=== PATIENT | male | born 1970 | race Hispanic/Latino ===

== ENCOUNTER 2022-04-25 10:04 | Inpatient (IN) | payer BC, SELFPAY ==
--- NOTE | 2022-04-25 10:41 | RAD REPORT ---
EXAM DESCRIPTION: CT - Ct Stroke Brain Wo Cont - 04/25/2022 10:28 am CLINICAL HISTORY: diplopia COMPARISON: No comparisons TECHNIQUE: Axial 5 millimeter thick images of the head were obtained without IV contrast. All CT scans are performed using dose optimization technique as appropriate and may include automated exposure control or mA/KV adjustment according to patient size. FINDINGS: No intracranial hemorrhage, mass, or cerebral edema. No acute infarction identifiable. No extra-axial fluid collections. [place] matter-white matter differentiation is preserved. Visualized portions of the mastoid air cells, paranasal sinuses, and orbits are unremarkable. Findings telephoned to Dr. Miles 10:36 a.m. IMPRESSION: No CT evidence of acute intracranial process.
[2022-04-25 10:51] LABS: Absolute Lymphocytes (CBC) 3.6 K/uL (0.7-4.9); Hematocrit 43.3 % (39.6-49.0); Lymphocytes % 45.5 % (15.3-44.8); MCV 90.3 fL (80-100); MPV 8.2 fL (7.6-11.3)
[2022-04-25] MEDS ORDERED: TENECTEPLASE 50 MG/10 ML VIAL IV ONE (10:52)
[2022-04-25 10:55] LABS: Protime INR 1.05
[2022-04-25 11:07] LABS: BUN Blood Urea Nitrogen 16 mg/dL (7-18); Bicarbonate 30 mmol/L (21-32); Glomerular Filtration Rate 107 ml/min (=/>90); Glucose Level 187 mg/dL (74-106); Potassium 3.3 mmol/L (3.5-5.1); Sodium Level 138 mmol/L (136-145)
[2022-04-25 11:09] LABS: Troponin High Sensitivity < 3.0 pg/mL (<58.9)
[2022-04-25] MEDS ORDERED: ONDANSETRON 4 MG/2 ML VIAL ONE (11:30)
--- NOTE | 2022-04-25 11:37 | RAD REPORT ---
EXAM DESCRIPTION: RAD - Chest Single View - 04/25/2022 11:30 am CLINICAL HISTORY: diplopia, Stroke protocol chest film TECHNIQUE: AP portable chest image was obtained 04/25/2022 11:30 am . FINDINGS: Lungs are clear. No hilar mass or lymphadenopathy. Heart and vasculature are normal. No me asurable pleural effusion and no pneumothorax. No acute bony abnormality seen. No acute aortic findin gs suspected. IMPRESSION: No acute cardiopulmonary process.
[2022-04-25 11:44] LABS: Blood Morphology Comment NOT SEEN (NOT SEEN); Platelet Estimate ADEQ
--- NOTE | 2022-04-25 11:49 | EDPHYS ---
Physician Documentation [facility] Name: Gerhard Fu Age: 51 yrs Sex: Male : 1970 Arrival Date: 04/25/2022 Time: 10:05 Bed 5 Private MD: ED Physician Ginger Gerhard HPI: 04/25 10:43 This 51 yrs old Male presents to ER via Ambulatory with complaints of vision problem, rn Trouble Walking. 10:43 The patient presents to the emergency department with difficult walking, the patient is rn off balance, a vision problem, double vision. Onset: The symptoms/episode began/occurred 30 minute(s) ago. Context: occurred at work, occurred while the patient was at rest. Associated signs and symptoms: Pertinent positives: double vision, Pertinent negatives: fever, headache, seizure, syncope, weakness. Severity of symptoms: At their worst the symptoms were moderate in the emergency department the symptoms are unchanged. The patient has not experienced similar symptoms in the past. Patient states 30 min prior to arrival began with sudden onset double vision and inability to walk, " feels drunk". No injury or trauma. Never happened before. . Historical: - Allergies: 10:18 No Known Allergies; ph - PMHx: 10:18 None; ph - Immunization history:: Adult Immunizations unknown. - Social history:: Smoking status: Patient denies any tobacco usage or history of. - Family history:: not pertinent. - Hospitalizations: : No recent hospitalization is reported. ROS: 10:43 Constitutional: Negative for fever, chills, and weight loss, Eyes: + double vision rn Neck: Negative for injury, pain, and swelling, Cardiovascular: Negative for chest pain, palpitations, and edema, Respiratory: Negative for shortness of breath, cough, wheezing, and pleuritic chest pain, Abdomen/GI: Negative for abdominal pain, nausea, vomiting, diarrhea, and constipation, Back: Negative for injury and pain, MS/Extremity: Negative for injury and deformity, Skin: Negative for injury, rash, and discoloration, Neuro: Negative for headache, weakness, numbness, tingling, and seizure. Exam: 10:43 Constitutional: This is a well developed, well nourished patient who is awake, alert, rn and in no acute distress. Head/Face: Normocephalic, atraumatic. Eyes: + nystagmus present, + diplopia that resolves with covering of either eye. Cardiovascular: Tachycardic, regular. No pulse deficits. Respiratory: No increased work of breathing, no retractions or nasal flaring. Abdomen/GI: Soft, non-tender Skin: Warm, dry with normal turgor. Normal color with no rashes, no lesions, and no evidence of cellulitis. MS/ Extremity: Pulses equal, no cyanosis. Neurovascular intact. Full, normal range of motion. Equal circumference. Neuro: Awake and alert, GCS 15, oriented to person, place, time, and situation. Left eye apepars to show weakness on extreme right gaze. Motor strength 5/5 in all extremities. Sensory grossly intact. Gait not tested. 11:57 ECG was reviewed by the Attending Physician. rn Vital Signs: 10:16 BP 155 / 99; Pulse 115; Resp 18; Temp 97.5; Pulse Ox 98% on R/A; Weight 87.5 kg; Height ph 5 ft. 0 in. (152.40 cm); 11:03 BP 138 / 85; Pulse 110; Resp 20; Pulse Ox 98% ; Pain 0/10; mb8 11:33 BP 140 / 95; Pulse 104; Resp 18; Pulse Ox 97% ; Pain 0/10; mb8 10:16 Body Mass Index 37.67 (87.50 kg, 152.40 cm) ph NIH Stroke Scale Scores: 10:15 NIHSS Score: 1 mb8 MDM: 10:09 Patient medically screened. rn 10:38 ED course: CT head neg per Dr. Garcia. Consulted with Dr. Henderson, concerned of rn posterior stroke, recommends TNK with admission. . 11:46 Data reviewed: vital signs, nurses notes, lab test result(s), EKG, radiologic studies, rn CT scan, and as a result, I will admit patient. Counseling: I had a detailed discussion with the patient and/or guardian regarding: the historical points, exam findings, and any diagnostic results supporting the discharge/admit diagnosis, lab results, radiology results, the need for further work-up and treatment in the hospital. Response to treatment: the patient's symptoms have mildly improved after treatment, and as a result, I will admit patient. Admission orders: after a detailed discussion of the patient's condition and case, the admit orders are written by de. 04/25 10:16 Order name: Basic Metabolic Panel; Complete Time: 11:32 rn 04/25 10:16 Order name: CBC with Diff; Complete Time: 11:46 rn 04/25 10:16 Order name: Protime (+inr); Complete Time: 11:32 rn 04/25 10:16 Order name: Ptt, Activated; Complete Time: 11:32 rn 04/25 10:16 Order name: Troponin High Sensitivity; Complete Time: 11:32 rn 04/25 10:29 Order name: Glucose, Ancillary Testing; Complete Time: 11:32 EDMS 04/25 10:16 Order name: CT Stroke Brain w/o Contrast; Complete Time: 11:32 rn 04/25 10:16 Order name: Stroke CXR 1 View; Complete Time: 11:46 rn 04/25 11:44 Order name: Manual Differential; Complete Time: 11:46 EDMS 04/25 11:51 Order name: SARS RAPID; Complete Time: 17:15 rn 04/25 14:02 Order name: Lipid Profile; Complete Time: 17:15 EDMS 04/25 14:12 Order name: LDL, Direct; Complete Time: 17:15 EDMS 04/25 22:53 Order name: Hemoglobin A1c EDAK 04/26 08:21 Order name: Basic Metabolic Panel EDAK 04/25 10:16 Order name: EKG; Complete Time: 10:17 rn 04/25 10:16 Order name: Accucheck; Complete Time: 10:57 04/25 10:16 Order name: Cardiac monitoring; Complete Time: : rn 04/25 10:16 Order name: EKG - Nurse/Tech; Complete Time: :04/25 10:16 Order name: IV Saline Lock; Complete Time: :04/25 10:16 Order name: Labs collected and sent; Complete Time: :04/25 10:16 Order name: NPO; Complete Time: :04/25 10:16 Order name: O2 Per Protocol; Complete Time: :04/25 10:16 Order name: O2 Sat Monitoring; Complete Time: 11:03 rn 04/25 10:16 Order name: Stroke Swallow Screen; Complete Time: 11:04/25 13:46 Order name: CT; Complete Time: 17:15 EDMS 04/25 13:47 Order name: CT; Complete Time: 17:15 EDMS 04/25 16:43 Order name: MRI; Complete Time: 17:15 EDMS 04/26 07:44 Order name: CT EDMS EC:57 Rate is 108 beats/min. Rhythm is regular. QRS [place] is Normal. ID interval is normal. rn QRS interval is normal. QT interval is normal. No Q waves. T waves are Normal. No ST changes noted. Clinical impression: Sinus tachycardia. Interpreted by me. Reviewed by me. Administered Medications: 10:48 Drug: TNK FOR STROKE - Tenecteplase 0.25 mg/kg {Co-Signature: edy (Nayeli Sutton mb8 RN).} Route: IV; Rate: per protocol; Site: right antecubital; 10:49 Follow up: Response: No adverse reaction; IV Status: Completed infusion mb8 11:40 Drug: Zofran (Ondansetron) 4 mg Route: IVP; Site: right antecubital; mb8 12:02 Follow up: Response: No adverse reaction; Nausea is decreased mb8 Disposition Summary: 04/25/22 11:48 Hospitalization Ordered Hospitalization Status: Inpatient Admission rn Provider: [place] Ann rn Condition: Stable rn Problem: new rn Symptoms: have improved rn Bed/Room Type: Standard rn Location: Telemetry/MedSurg (Inpatient)(04/26/22 13:03) Room Assignment: [facility](04/26/22 13:03) eb Diagnosis - Cerebral infarction, unspecified rn - Ataxia, unspecified rn - Diplopia merchandising internship Instructions: - Discharge Summary Sheet ph Forms: - Medication Reconciliation Form rn - SBAR form rn NIH Stroke Scale - NIH Stroke Score Date: 04/25/2022 Time: 10:15 Total Score = 1 1a. Level of Consciousness (LOC) - 0(Alert) 1b. Level of Consciousness (LOC) (Month \\T\\ Age) - 0(Both) 1c. LOC Commands (Open \\T\\ Closes Eyes/B2B Outside Sales Representative) - 0(Both) 2. Best Gaze (Lateral Gaze Paresis) - 1(Partial gaze palsy) 3. Visual Field Loss - 0(No visual loss) 4. Facial Palsy - 0(Normal) 5a. Left Arm: Motor (10-second hold) - 0(No drift) 5b. Right Arm: Motor (10-second hold) - 0(No drift) 6a. Left Leg: Motor (5-second hold - always test supine) - 0(No drift) 6b. Right Leg: Motor (5-second hold - always test supine) - 0(No drift) 7. Limb Ataxia (finger/nose \\T\\ heel/loredo - test with eyes open) - 0(Absent) 8. Sensory Loss (pinprick arms/legs/face) - 0(Normal) 9. Best Language: Aphasia (description/naming/reading) - 0(No aphasia) 10. Dysarthria (speech clarity - read or repeat words) - 0(Normal) 11. Extinction and Inattention (visual/tactile/auditory/spatial/personal) - 0(No abnormality) Initials: mb8 Signatures: Dispatcher [employer] EDMS Sil Skinner Roman, MD MD rn Hall, Patricia, RN RN Anaid Martinez Michael, RN RN mb8 Nayeli Sutton RN ss Corrections: (The following items were deleted from the chart) 14:38 11:48 Intensive Care Unit rn bd 14:38 11:48 rn bd 16:45 14:38 [facility] ER HOLD bd bd 16:45 14:38 ERHOLD- bd bd 17:21 16:45 Telemetry/MedSurg (Inpatient) bd bd 17:21 16:45 419 bd bd 04/26 13:03 0914 17:21 [facility] ER HOLD bd eb 04/26 13:03 04/25 17:21 ERHOLD- bd eb
--- NOTE | 2022-04-25 11:49 | ER ---
Nurse's Notes [facility] Name: Gerhard Fu Age: 51 yrs Sex: Male : 1970 Arrival Date: 04/25/2022 Time: 10:05 Bed 5 Private MD: Diagnosis: Cerebral infarction, unspecified;Ataxia, unspecified;Diplopia Presentation: 04/25 10:13 Note provider at bedside at this time. tw2 10:16 Chief complaint: Patient states: Visual disturbance , "like eyes are crossing" and ph trouble walking that started approx 30 minutes ago. 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 Coronavirus screen: Vaccine status: Patient reports being unvaccinated. Ebola Screen: No symptoms or risks identified at this time. Initial Sepsis Screen: Does the patient meet any 2 criteria? No. Patient's initial sepsis screen is negative. Does the patient have a suspected source of infection? No. Patient's initial sepsis screen is negative. Risk Assessment: Do you want to hurt yourself or someone else? Patient reports no desire to harm self or others. Onset of symptoms was April 25, 2022. 10:16 Method Of Arrival: Ambulatory ph 10:16 Acuity: ARABELLA 2 ph Triage Assessment: 10:19 General: Appears in no apparent distress. Behavior is calm, cooperative. Pain: ph Complains of pain in chest. Neuro: Level of Consciousness is awake, alert, obeys commands, Oriented to person, place, time, situation, Reports blurred vision. Cardiovascular: Reports chest pain, palpitations. Historical: - Allergies: 10:18 No Known Allergies; ph - PMHx: 10:18 None; ph - Immunization history:: Adult Immunizations unknown. - Social history:: Smoking status: Patient denies any tobacco usage or history of. - Family history:: not pertinent. - Hospitalizations: : No recent hospitalization is reported. Screenin:10 Abuse screen: Denies threats or abuse. Nutritional screening: No deficits noted. tw2 Tuberculosis screening: No symptoms or risk factors identified. Fall Risk None identified. 11:03 VAN Screening: Arm Drift: Patient shows no arm weakness. Patient is VAN negative. mb8 Visual Disturbance: Patient reports double vision. Provider notified of +VAN scoring. Aphasia: No aphasia noted. Neglect: No neglect noted. The patient has not been NPO before screening. The patient is alert, able to follow commands. The patient does not exhibit slurred or garbled speech The patient is not exhibiting difficulty speaking. The patient does not exhibit difficulty understanding words. The patient is able to swallow own secretions with no drooling or need for suction. Patient tolerated one teaspoon of water. No drooling, immediate coughing, gurgling, or clearing of the throat was noted. The patient tolerated 90mL of water. No drooling, immediate coughing, gurgling, or clearing of the throat was noted. The patient passed the bedside swallow screening. Oral medications may be given as ordered. Contact Physician for further diet orders. Provider notified of bedside swallow screening results: Gerhard Miles MD. Assessment: 10:15 Tenecteplase (TNKase) screening:. General: LKW 0915. Pain: Denies pain. Neuro: Bowman mb8 Agitation-Sedation Scale (RASS): 0 - Alert and Calm Level of Consciousness is awake, alert, obeys commands, Oriented to person, place, time, situation, Graphotype Operator are equal bilaterally Moves all extremities. Gait is steady, Speech is normal, Facial symmetry appears normal, Pupils are PERRLA, Intact Reports vision is crossing, denies BELTRE. If either eye is covered, the uncovered eye can see normal.. Cardiovascular: Rhythm is sinus tachycardia Chest pain is denied. 10:22 Reassessment: pt transported to CT via stretcher with DEBBI Britt at this time. tw2 11:40 Reassessment: No changes from previously documented assessment. Patient and/or family mb8 updated on plan of care and expected duration. Pain level reassessed. Patient is alert, oriented x 3, equal unlabored respirations, skin warm/dry/pink. 11:58 Pain:. mb8 Vital Signs: 10:16 BP 155 / 99; Pulse 115; Resp 18; Temp 97.5; Pulse Ox 98% on R/A; Weight 87.5 kg; Height ph 5 ft. 0 in. (152.40 cm); 11:03 BP 138 / 85; Pulse 110; Resp 20; Pulse Ox 98% ; Pain 0/10; mb8 11:33 BP 140 / 95; Pulse 104; Resp 18; Pulse Ox 97% ; Pain 0/10; mb8 10:16 Body Mass Index 37.67 (87.50 kg, 152.40 cm) ph NIH Stroke Scale Scores: 10:15 NIHSS Score: 1 mb8 ED Course: 10:05 Patient arrived in ED. rg4 10:09 Gerhard Miles MD is Attending Physician. rn 10:10 Bed in low position. Call light in reach. certified court interpreter on. Pulse ox on. NIBP on. tw2 10:10 Arm band placed on. mb8 10:18 Triage completed. ph 10:19 Patient maintains SpO2 saturation greater than 95% on room air. ph 10:31 CT Stroke Brain w/o Contrast In Process Unspecified. EDMS 10:35 Inserted saline lock: 18 gauge in right antecubital area, using aseptic technique. mb8 Blood collected. 10:40 Balwinder Lord, DEBBI is Primary Nurse. mb8 11:02 No provider procedures requiring assistance completed. mb8 11:32 Stroke CXR 1 View In Process Unspecified. EDMS 11:48 Prince Juarez MD is Hospitalizing Provider. rn Administered Medications: 10:48 Drug: TNK FOR STROKE - Tenecteplase 0.25 mg/kg {Co-Signature: ss (Nayeli garcia8 RN).} Route: IV; Rate: per protocol; Site: right antecubital; 10:49 Follow up: Response: No adverse reaction; IV Status: Completed infusion mb8 11:40 Drug: Zofran (Ondansetron) 4 mg Route: IVP; Site: right antecubital; mb8 12:02 Follow up: Response: No adverse reaction; Nausea is decreased mb8 Medication: 10:19 VIS not applicable for this client. ph Outcome: 11:48 Decision to Hospitalize by Provider. rn 04/26 14:13 Patient left the ED. NIH Stroke Scale - NIH Stroke Score Date: 04/25/2022 Time: 10:15 Total Score = 1 1a. Level of Consciousness (LOC) - 0(Alert) 1b. Level of Consciousness (LOC) (Month \\T\\ Age) - 0(Both) 1c. LOC Commands (Open \\T\\ Closes Eyes/Thermal Cutting Machine Operator) - 0(Both) 2. Best Gaze (Lateral Gaze Paresis) - 1(Partial gaze palsy) 3. Visual Field Loss - 0(No visual loss) 4. Facial Palsy - 0(Normal) 5a. Left Arm: Motor (10-second hold) - 0(No drift) 5b. Right Arm: Motor (10-second hold) - 0(No drift) 6a. Left Leg: Motor (5-second hold - always test supine) - 0(No drift) 6b. Right Leg: Motor (5-second hold - always test supine) - 0(No drift) 7. Limb Ataxia (finger/nose \\T\\ heel/loredo - test with eyes open) - 0(Absent) 8. Sensory Loss (pinprick arms/legs/face) - 0(Normal) 9. Best Language: Aphasia (description/naming/reading) - 0(No aphasia) 10. Dysarthria (speech clarity - read or repeat words) - 0(Normal) 11. Extinction and Inattention (visual/tactile/auditory/spatial/personal) - 0(No abnormality) Initials: mb8 Signatures: Dispatcher [employer] EDMS Gerhard Miles MD MD rn Hall, Patricia, RN RN Paty Lopez RN RN tw2 Evie Briseno 4 Balwinder Lord RN RN mb8 Nayeli Sutton RN ss Corrections: (The following items were deleted from the chart) 04/25 10:23 10:13 Note provider at bedside at this time tw2 tw2 12:01 10:15 Tenecteplase (TNKase) screening: Indications for treatment: Presentation mb8 consistent with AMI: Yes. Relief from sublingual Nitroglycerin: No. EKG evidence of Acute Myocardial Infarction with ST elevation: No. mb8
--- NOTE | 2022-04-25 12:28 | P.HP ---
Certification for Inpatient Patient admitted to: Inpatient With expected LOS: >2 Midnights Practitioner: I am a practitioner with admitting privileges, knowledge of patient current condition, hospital course, and medical plan of care. Services: Services provided to patient in accordance with Admission requirements found in Title 42 Section 412.3 of the Code of Federal Regulations Patient History Date of Service: 04/25/22 Reason for admission: Diplopia and ataxia History of Present Illness: Patient is a 51-year-old male with obesity. Otherwise, no past medical issues. Has brought in to the hospital by his coworkers after he developed sudden onset of diplopia. The onset of symptoms was 2 to 3 hours before presentation. Patient was at work when this occurred. 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 When he went to check on the patient, patient complained of seeing double vision. His coworker actually noticed that his eyes were crossed. He had difficulty maintaining a stable gait and had to be guided out of the truck. There was no trouble with the speech or mental status. Patient does not take any medications at home. He has no history of tobacco smoking or illicit drug use. He consumes alcohol occasionally, and energy drinks on a daily basis. Physical Examination - Physical Exam General: In no apparent distress, Cooperative, Obese HEENT: Atraumatic, Normocephalic, PERRLA, Other (Strabismus) Neck: Supple Respiratory: Clear to auscultation bilaterally, Normal air movement Cardiovascular: Normal pulses, Regular rate/rhythm, Normal S1 S2 Gastrointestinal: Soft and benign, Non-distended Musculoskeletal: No clubbing, No swelling, No contractures Neurological: Normal speech, Sensation intact - Studies Laboratory Data (last 24 hrs) 04/25/22 10:32: PT 11.6, INR 1.05, APTT 30.6 04/25/22 10:32: WBC 8.00, Hgb 15.3, Hct 43.3, Plt Count 238 04/25/22 10:32: Sodium 138, Potassium 3.3 L, BUN 16, Creatinine 0.83, Glucose 187 H Assessment and Plan - Problems (Diagnosis) (1) CVA (cerebral vascular accident) Current Visit: Yes Status: Acute (2) Obesity Current Visit: Yes Status: Acute - Plan Assessment Patient is a 51 year old male with obesity brought in from work after he developed an acute episode of diplopia and gait instability. He received tenecteplase in the ER. CT head was negative for acute intracranial abnormalities. Patient still has evidence of trismus most on physical exam. Speech is clear and mental status intact. Suspected CVA Obesity Plan: Admit inpatient with telemetry Patient will need to be in the unit for neuro q checks s/p tenecteplase Repeat CT head tomorrow morning Will obtain a formal MRI of the brain along with a CT angio of the neck Follow-up 2D echo, lipid panel and hemoglobin A1c Start high intensity statin We can put him on aspirin in 24 hours and possibly Plavix Will benefit from a neurology consult PT/OT ordered No chemoppx for the next 24 hours - Advance Directives Does patient have a Living Will: No Does patient have a Durable POA for Healthcare: No
[2022-04-25 12:29] LABS: SARS-CoV-2 Antigen Rapid Res Negative (Negative)
[2022-04-25 12:46] VITALS: BMI 37.6
--- NOTE | 2022-04-25 13:44 | RAD REPORT ---
EXAM DESCRIPTION: CT - Head angio - 04/25/2022 1:15 pm CLINICAL HISTORY: STROKE COMPARISON: Ct Stroke Brain Wo Cont dated 04/25/2022t Stroke Brain Wo Cont dated 04/25/2022 TECHNIQUE: CT angiography of the head was performed with MIPs. All CT scans are performed using dose optimization technique as appropriate and may include automated exposure control or mA/KV adjustment according to patient size. FINDINGS: Anterior circulation: No aneurysm or large vessel occlusion. No hemodynamically significant stenosis. There is abnormal asy mmetric arterial enhancement of the left cavernous carotid. No other significant focal abnormalities identified to determine the significance of this finding. Posterior circulation: No aneurysm or large vessel occlusion. No hemodynamically significant stenosis. No arteriovenous malf ormation identified. Left dominant vertebral artery. 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 Asymmetric arterial filling of the left c avernous sinus noted. The clinical significance is unknown. Catheter angiogram would be needed to con firm.
--- NOTE | 2022-04-25 13:46 | RAD REPORT ---
EXAM DESCRIPTION: CT - Neck Angio - 04/25/2022 1:15 pm CLINICAL HISTORY: cva COMPARISON: No comparisons TECHNIQUE: CT angiography of the neck vessels was performed with MIPs. All CT scans are performed using dose optimization technique as appropriate and may include automated exposure control or mA/KV adjustment according to patient size. FINDINGS: A left aortic arch is identified with normal three vessel configuration of the great vesse ls. No significant flow abnormality is seen of the common carotid bilaterally. No significant stenosis is identified involving the cervical segments of both internal carotid arteri es. Normal flow is seen within both vertebral arteries. Left dominant vertebral artery. IMPRESSION: No significant flow abnormality of the neck vessels is identified.
[2022-04-25 13:58] LABS: HDL Cholesterol 31 mg/dL (40-60)
[2022-04-25 14:12] LABS: LDL, Direct 153 mg/dL (100-129)
--- NOTE | 2022-04-25 16:41 | RAD REPORT ---
EXAM DESCRIPTION: MRI - Brain Wo Cont - 04/25/2022 4:22 pm CLINICAL HISTORY: cva COMPARISON: No comparisons TECHNIQUE: Sagittal T1-weighted images were obtained along with PD/heavily T2-weighted and T2-FLAIR images. Axial DWI and ADC mapping sequences were also obtained along with coronal heavily T2-weighted images were obtained. FINDINGS: No intracranial hemorrhage, mass or acute infarction. There is no edema or shift of midlin e structures. No extra-axial fluid collections. Signal voids are seen as a normal finding in the maggie r intracranial vessels. Single focus of T2 hyperintensity in the right centrum semiovale is within no rmal limits for patient's age. Mastoid air cells and paranasal sinuses are clear. IMPRESSION: No acute intracranial abnormality. Specifically, no evidence of acute infarct.
[2022-04-25] MEDS: ATORVASTATIN 40 MG TAB PO SCH (22:50)
[2022-04-25] MEDS ORDERED: ATORVASTATIN 20 MG TAB ONE (23:04)
--- NOTE | 2022-04-26 07:44 | RAD REPORT ---
EXAM DESCRIPTION: CT - Head Brain Wo Cont - 04/26/2022 7:33 am CLINICAL HISTORY: CVA COMPARISON: April 25, 2022 TECHNIQUE: Computed axial tomography of the head was obtained. IV contrast was not requested. All CT scans are performed using dose optimization technique as appropriate and may include automated exposure control or mA/KV adjustment according to patient size. FINDINGS: An intracranial bleed is not seen . The ventricles are normal in caliber. No significant hypodense areas within the brain visualized No extra-axial fluid collection is noted. Cerebellar tonsillar ectopia is present. Fluid within the sinuses/ mastoids is not seen. IMPRESSION: No acute intracranial abnormality is seen. If patient's symptoms persist MRI of the bra in would be recommended.
[2022-04-26 08:17] LABS: Potassium 4.4 mmol/L (3.5-5.1)
--- NOTE | 2022-04-26 13:38 | EKG ---
Test Date: 2022-04-25 Test Time: 10:40:02 Timekeeper Supervisor: GUMARO MEASUREMENT RESULTS: Intervals: Rate: 108 NC: 164 QRSD: 90 QT: 340 QTc: 455 [place]: P: 43 NC: 164 QRS: 79 T: 11 INTERPRETIVE STATEMENTS: Sinus tachycardia Otherwise normal ECG No previous ECG available for comparison Electronically Signed On 04-26-22 13:35:29 CDT by Gutierrez Lyons
--- NOTE | 2022-04-26 14:29 | ECHO ---
HEIGHT: 5 ft 0 in WEIGHT: 192 lb 14.472 oz DATE OF STUDY: 04/26/[address]: Prince David Juarez MD 2-DIMENSIONAL: YES M.MODE: YES DOPPLER: YES COLOR FLOW: YES TDS: NO PORTABLE: YES DEFINITY: NO BUBBLE STUDY: NO DIAGNOSIS: DIZZINESS CARDIAC HISTORY: CATHERIZATION: SURGERY: PROSTHETIC VALVE: PACEMAKER: MEASUREMENTS (cm) DIASTOLIC (NORMALS) SYSTOLIC (NORMALS) IVSd 0.9 (0.6-1.2) LA Diam 3.3 (1.9-4.0) LVEF 60-65% LVIDd 4.7 (3.5-5.7) LVIDs 2.9 (2.0-3.5) %FS 39% LVPWd 1.1 (0.6-1.2) Ao Diam 2.6 (2.0-3.7) 2 DIMENSIONAL ASSESSMENT: RIGHT ATRIUM: NORMAL LEFT ATRIUM: NORMAL RIGHT VENTRICLE: NORMAL LEFT VENTRICLE: NORMAL TRICUSPID VALVE: MITRAL VALVE: PULMONIC VALVE: NORMAL AORTIC VALVE: NORMAL PERICARDIAL EFFUSION: NONE AORTIC ROOT: NORMAL LEFT VENTRICULAR WALL MOTION: NORMAL DOPPLER/COLOR FLOW: SEE BELOW COMMENTS: NORMAL LEFT VENTRICULAR EJECTION FRACTION 60-65%. NORMAL WALL MOTION. MILD TRICUSPID AND MITRAL REGURGITATION. TECHNOLOGIST: Shukri JUDD
--- NOTE | 2022-04-26 16:35 | P.PN ---
Subjective Date of Service: 04/26/22 Chief Complaint: Diplopia and ataxia Subjective: Improving (Patient neurological function is back to baseline.) Physical Examination - Vital Signs Temperature: 97.2 F Blood Pressure: 107/71 Pulse: 58 Respirations: 18 Pulse Ox (%): 96 - Physical Exam General: Alert, In no apparent distress, Cooperative, Obese HEENT: Atraumatic, Normocephalic, EOMI Respiratory: Clear to auscultation bilaterally, Normal air movement Cardiovascular: No edema, Normal pulses, Regular rate/rhythm, Normal S1 S2 Musculoskeletal: No clubbing, No swelling, No contractures Neurological: Normal speech, Sensation intact, Cranial nerves 3-12 intact Assessment And Plan - Current Problems (Diagnosis) (1) CVA (cerebral vascular accident) Current Visit: Yes Status: Acute (2) Obesity Current Visit: Yes Status: Acute - Plan Assessment Patient is a 51 year old male with obesity brought in from work after he developed an acute episode of diplopia and gait instability. He received tenecteplase in the ER. CT head was negative for acute intracranial abnormalities. Patient still has evidence of trismus most on physical exam. Speech is clear and mental status intact. 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
[2022-04-26] MEDS: ATORVASTATIN 40 MG TAB PO SCH (20:30)
--- NOTE | 2022-04-27 00:53 | P.DS ---
Admission Date: 04/25/22 Discharge Date: 04/27/22 Disposition: TRANSFER TO [facility] Discharge Condition: FAIR Reason for Admission: Diplopia and ataxia Consultations: Neurology Dr. Henderson Procedures: Echocardiogram 04/26/2022 NORMAL LEFT VENTRICULAR EJECTION FRACTION 60-65%. NORMAL WALL MOTION. MILD TRICUSPID AND MITRAL REGURGITATION. Head CT 04/26/2022 FINDINGS: An intracranial bleed is not seen . The ventricles are normal in caliber. No significant hypodense areas within the brain visualized No extra-axial fluid collection is noted. Cerebellar tonsillar ectopia is present. Fluid within the sinuses/ mastoids is not seen. IMPRESSION: No acute intracranial abnormality is seen. If patient's symptoms persist MRI of the brain would be recommended. Brain MRI 04/25/2022 FINDINGS: No intracranial hemorrhage, mass or acute infarction. There is no edema or shift of midline structures. No extra-axial fluid collections. Signal voids are seen as a normal finding in the major intracranial vessels. Single focus of T2 hyperintensity in the right centrum semiovale is within normal limits for patient's age. Mastoid air cells and paranasal sinuses are clear. IMPRESSION: No acute intracranial abnormality. Specifically, no evidence of acute infarct. Chest x-ray 04/25/2022 FINDINGS: Lungs are clear. No hilar mass or lymphadenopathy. Heart and vasculature are normal. No measurable pleural effusion and no pneumothorax. No acute bony abnormality seen. No acute aortic findings suspected. IMPRESSION: No acute cardiopulmonary process. Neck CTA 04/25/2022 FINDINGS: A left aortic arch is identified with normal three vessel configuration of the great vessels. No significant flow abnormality is seen of the common carotid bilaterally. No significant stenosis is identified involving the cervical segments of both internal carotid arteries Normal flow is seen within both vertebral arteries. Left dominant vertebral artery. IMPRESSION: No significant flow abnormality of the neck vessels is identified. Head CTA 04/25/2022 FINDINGS: Anterior circulation: No aneurysm or large vessel occlusion. No hemodynamically significant stenosis. There is abnormal asymmetric arterial enhancement of the left cavernous carotid. No other significant focal abnormalities identified to determine the significance of this finding. Posterior circulation: No aneurysm or large vessel occlusion. No hemodynamically significant stenosis. No arteriovenous malformation identified. Left dominant vertebral artery. 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 Asymmetric arterial filling of the left cavernous sinus noted. The clinical significance is unknown. Catheter angiogram would be needed to confirm. Brief History of Present Illness: Patient is a 51-year-old male with obesity. Otherwise, no past medical issues. Has brought in to the hospital by his coworkers after he developed sudden onset of diplopia. The onset of symptoms was 2 to 3 hours before presentation. Patient was at work when this occurred. 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 When he went to check on the patient, patient complained of seeing double vision. His coworker actually noticed that his eyes were crossed. He had difficulty maintaining a stable gait and had to be guided out of the truck. There was no trouble with the speech or mental status. Patient does not take any medications at home. He has no history of tobacco smoking or illicit drug use. He consumes alcohol occasionally, and energy drinks on a daily basis. Hospital Course: (1) CVA (cerebral vascular accident) Current Visit: Yes Status: Acute (2) Obesity Current Visit: Yes Status: Acute Patient is a 51 year old male with obesity brought in from work after he developed an acute episode of diplopia and gait instability. He received tenecteplase in the ER. CT head was negative for acute intracranial abno rmalities. Patient still has evidence of trismus most on physical exam. Speech is clear and mental status intact. Cavernous carotid fistula was noted on CT and patient wasaccepted to 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 for catheter angiogram Continue aspirin and high intensity statin for primary prevention of CVA I appreciate assistance from neurology Patient has been ambulating without assistance Vital Signs/Physical Exam: Temp Pulse Resp BP Pulse Ox 97.2 F 82 18 118/86 97 04/26/22 20:00 04/26/22 20:00 04/26/22 20:00 04/26/22 20:00 04/26/22 20:00 General: Alert, In no apparent distress, Oriented x3 HEENT: Atraumatic, PERRLA, EOMI Neck: Supple, JVD not distended Respiratory: Clear to auscultation bilaterally, Normal air movement Cardiovascular: Regular rate/rhythm, Normal S1 S2 Capillary refill: <2 Seconds Gastrointestinal: Normal bowel sounds, No tenderness Musculoskeletal: No tenderness Integumentary: No rashes Neurological: Normal speech, Normal tone, Normal affect Laboratory Data at Discharge: WBC 8.00 K/uL (4.3-10.9) 04/25/22 10:32 Hgb 15.3 g/dL (13.6-17.9) 04/25/22 10:32 Hct 43.3 % (39.6-49.0) 04/25/22 10:32 Plt Count 238 K/uL (152-406) 04/25/22 10:32 PT 11.6 SECONDS (9.5-12.5) 04/25/22 10:32 INR 1.05 04/25/22 10:32 APTT 30.6 SECONDS (24.3-36.9) 04/25/22 10:32 Sodium 140 mmol/L (136-145) 04/26/22 07:43 Potassium 4.4 mmol/L (3.5-5.1) D 04/26/22 07:43 BUN 14 mg/dL (7-18) 04/26/22 07:43 Creatinine 0.80 mg/dL (0.55-1.3) 04/26/22 07:43 Glucose 139 mg/dL (74-106) H 04/26/22 07:43 Triglycerides 530 mg/dL (<150) H 04/25/22 10:32 Cholesterol 247 mg/dL (<200) H 04/25/22 10:32 LDL Cholesterol Direct 153 mg/dL (100-129) H 04/25/22 10:32 HDL Cholesterol 31 mg/dL (40-60) L 04/25/22 10:32 Cholesterol/HDL Ratio 7.97 04/25/22 10:32 Home Medications: NK [No Home Meds] 04/26/22 Physician Discharge Instructions: Continue with care at [facility]. Diet: AHA Followup: NONE,NONE [Primary Care Provider] - Time spent managing pt's care (in minutes): 20
[2022-04-27] MEDS ORDERED: ASPIRIN EC 81 MG TAB PO SCH (09:00)
[2022-04-27 14:54] VITALS: TEMP 97.5
[2022-04-27 14:58] VITALS: BP 140/95; O2SAT 97
== END 2022-04-27 00:39 | disposition short-term general hospital (02) | DRG 72 ==
LOC: ER 10:04 → ERHOLD 12:10 → 4TH 04-26 13:35
PROVIDERS: ADMIT Internal Medicine; ATTEND Internal Medicine
DX: G93.89 Other specified disorders of brain (principal); H53.2 Diplopia; E66.9 Obesity, unspecified; R29.701 NIHSS score 1; R27.0 Ataxia, unspecified; Z79.82 Long term (current) use of aspirin; Z68.37 Body mass index [BMI] 37.0-37.9, adult; Z20.822 Contact with and (suspected) exposure to COVID-19
CPT/HCPCS: 36415; 70450; 70496; 70498; 70551; 71045; 80048; 80061; 82947; 83036; 84484; 85025; 85610; 85730; 87811; 92977; 93005; 93306; 96374; 96375; 97116; 97161; 97165; 99291; J2405; J3101; Q9967